=== PATIENT | female | born 1940 | race Caucasian/White ===

== ENCOUNTER 2016-05-18 09:13 | Observation (INO) | payer MEDICARE, OTHER ==
[2016-05-18] VITALS (9 sets, daily range): BP systolic 116–143; BP diastolic 53–90; PULSE 83–98; RESP 16–22; TEMP 98–98.1; O2SAT 88–100
[~2016-05-18] VITALS: Ht 154.9 cm; Wt 75.9 kg
[2016-05-18] MEDS ORDERED: RESP: ALBUTEROL 2.5 MG/IPRATROPIUM 0.5 MG NEB (SCH) NEB ONE (09:45)
[2016-05-18] MEDS ORDERED: SODIUM CHLORIDE 0.9% FLUSH 5 ML FLUSH IVF PRN ×2 (09:45→11:45)
--- NOTE | 2016-05-18 09:48 | PD ---
HPI Chief Complaint: Respiratory Distress Time Seen by Provider: 09:36 Travel History International Travel<30 days: No Contact w/Intl Traveler<30days: No Traveled to known affect area: No History of Present Illness HPI Patient 76-year-old female presents the emergency department for second evaluation of shortness of breath and cough. Patient states she was evaluated in urgent care center approximately week ago was diagnosed with bronchitis after chest x-ray was negative and placed on ciprofloxacin. She is finished her ciprofloxacin and continues to have dry cough and states she can't get her phlegm up. Patient states she had not had a flu shot this year. Did not test her for the flu at that time. She denies any fevers but does endorse chills. Denies any chest pain. Denies abdominal pain nausea vomiting diarrhea constipation or rash. States symptoms began gradually worsening. PFSH Past Medical History Narrative Medical Lung nodule Fibromyalgia Respiratory: Yes Past Surgical History Narrative Surgical Patient has a history of partial pneumonectomy secondary to a nodule on her lung , Cholecystectomy hysterectomy Family History Narrative Family History Noncontributory Social History Narrative Social History Ex-smoker 20 years. Tobacco Use: No Allergies-Medications (Allergen,Severity, Reaction): Coded Allergies: Iodine (Verified Allergy, Severe, respiratory failure, 05/18/16) Shellfish (Verified Allergy, Severe, anaphylaxis, 05/18/16) Codeine (Verified Adverse Reaction, Severe, "walk into ingram", 05/18/16) Reported Meds & Prescriptions Reported Meds & Active Scripts Active Reported Aspirin 81 (Aspirin) 81 Mg Tabdr 81 Mg PO DAILY Xanax (Alprazolam) 0.5 Mg Tab 0.5 Mg PO BID PRN Celebrex (Celecoxib) 200 Mg Cap 250 Mg PO DAILY Review of Systems Except as stated in HPI: all other systems reviewed are Neg Physical Exam Narrative GENERAL: Well-developed well-nourished in no apparent distress. Appears quite comfortable and signs of adequate perfusion and oxygenation. SKIN: Warm and dry. HEAD: Atraumatic. Normocephalic. EYES: Pupils equal and round. No scleral icterus. No injection or drainage. ENT: No nasal bleeding or discharge. Mucous membranes pink and moist. NECK: Trachea midline. No JVD. CARDIOVASCULAR: Regular rate and rhythm. No murmur appreciated. RESPIRATORY: No accessory muscle use. Clear to auscultation. Breath sounds equal bilaterally. GASTROINTESTINAL: Abdomen soft, non-tender, nondistended. Hepatic and splenic margins not palpable. MUSCULOSKELETAL: No obvious deformities. No clubbing. No cyanosis. No edema. NEUROLOGICAL: Awake and alert. No obvious cranial nerve deficits. Motor grossly within normal limits. Normal speech. PSYCHIATRIC: Appropriate mood and affect; insight and judgment normal. Data Data Last Documented VS Vital Signs Date Time Temp Pulse Resp B/P Pulse Ox O2 Delivery O2 Flow Rate FiO2 05/18/16 11:01 83 16 130/59 96 Nasal Cannula 2 05/18/16 09:37 98.1 Orders Ckmb (Isoenzyme) Profile (05/18/16 09:38) Complete Blood Count With Diff (05/18/16 09:38) Comprehensive Metabolic Panel (05/18/16 09:38) Magnesium (Mg) (05/18/16 09:38) Prothrombin Time / Inr (Pt) (05/18/16 09:38) Act Partial Throm Time (Ptt) (05/18/16 09:38) Troponin I (05/18/16 09:38) Ecg Monitoring (05/18/16 09:38) Bilateral Bp Monitoring (05/18/16 09:38) Iv Access Insert/Monitor (05/18/16 09:38) Oximetry (05/18/16 09:38) Oxygen Administration (05/18/16 09:38) Sodium Chloride 0.9% Flush (Ns Flush) (05/18/16 09:45) Chest, Pa & Lat (05/18/16 09:38) Albuterol-Ipratropium Neb (Duoneb Neb) (05/18/16 09:45) Blood Gas Venous (Vbg) (05/18/16 09:40) Influenzae A/B Antigen (05/18/16 09:50) Resp Home Oxygen Walk Test (05/18/16 ) Ventilation & Perfusion Scan (05/18/16 ) Ceftriaxone Inj (Rocephin Inj) (05/18/16 11:00) Azithromycin Inj (Zithromax Inj) (05/18/16 11:00) Admit Order (Ed Use Only) (05/18/16 ) Labs Laboratory Tests Test 05/18/16 05/18/16 09:55 09:57 White Blood Count 11.2 TH/MM3 Red Blood Count 4.31 MIL/MM3 Hemoglobin 14.1 GM/DL Hematocrit 41.9 % Mean Corpuscular Volume 97.3 FL Mean Corpuscular Hemoglobin 32.7 PG Mean Corpuscular Hemoglobin 33.6 % Concent Red Cell Distribution Width 11.7 % Platelet Count 321 TH/MM3 Mean Platelet Volume 8.0 FL Neutrophils (%) (Auto) 45.0 % Lymphocytes (%) (Auto) 45.2 % Monocytes (%) (Auto) 8.1 % Eosinophils (%) (Auto) 0.6 % Basophils (%) (Auto) 1.1 % Neutrophils # (Auto) 5.0 TH/MM3 Lymphocytes # (Auto) 5.1 TH/MM3 Monocytes # (Auto) 0.9 TH/MM3 Eosinophils # (Auto) 0.1 TH/MM3 Basophils # (Auto) 0.1 TH/MM3 CBC Comment DIFF FINAL Differential Comment Prothrombin Time 11.2 SEC Prothromb Time International 1.0 RATIO Ratio Activated Partial 25.3 SEC Thromboplast Time Sodium Level 139 MEQ/L Potassium Level 3.9 MEQ/L Chloride Level 101 MEQ/L Carbon Dioxide Level 31.2 MEQ/L Anion Gap 7 MEQ/L Blood Urea Nitrogen 18 MG/DL Creatinine 0.63 MG/DL Estimat Glomerular Filtration 92 ML/MIN Rate Random Glucose 88 MG/DL Calcium Level 8.7 MG/DL Magnesium Level 1.9 MG/DL Total Bilirubin 0.6 MG/DL Aspartate Amino Transf 28 U/L (AST/SGOT) Alanine Aminotransferase 48 U/L (ALT/SGPT) Alkaline Phosphatase 84 U/L Total Creatine Kinase 85 U/L Troponin I LESS THAN 0.02 NG/ML Total Protein 7.0 GM/DL Albumin 3.5 GM/DL Blood Gas Puncture Site IV Blood Gas Patient Temperature 98.6 Venous Blood pH 7.40 Venous Blood Partial Pressure 46 mmHg CO2 Venous Blood Partial Pressure 42 mmHg O2 Venous Blood HCO3 28 mmol/L Venous Blood Oxygen Saturation 71 % Venous Blood Oxygen Content 14.2 Vol % Venous Blood Base Excess 3.9 mmol/L Oxygen Delivery Device NASAL CANNULA Blood Gas Liter Flow 2 L/M [facility] Medical Decision Making Medical Screen Exam Complete: Yes Emergency Medical Condition: Yes Interpretation(s) EKG shows normal sinus rhythm with normal axis and normal R-wave progression. Intervals within normal limits. Q waves in 3 and less notably in aVF could signify a prior inferior infarct. Otherwise this is a normal EKG. Differential Diagnosis Pneumonia, bronchitis, hypoxia, hypercapnia, influenza, Narrative Course Patient was roomed in the emergency department, chest x-ray shows a very slight atelectasis versus infiltrate in the left lower lobe. She was noted to be having a sat of 90 on room air when my first encounter. While talking she desaturated 89. After a DuoNeb treatment she ambulates around the emergency department and desaturated to 87. She seems to be tolerating the hypoxia fairly well and this may be her baseline hypoxia given a history of smoking. However this is not documented in the past. And recommended that she be admitted to the hospital further evaluation. PE remains on the differential diagnosis and porcine the patient has severe iodine allergy and is unable to pursue CTA. Therefore a VQ scan has been ordered. Patient was discussed with Dr. Benson for admission. Patient has been given Rocephin and azithromycin by IV. She has completed a course of Cipro already for this illness. She does not meet SIRS criteria and therefore does not meet criteria for aggressive fluid hydration. She was placed on 2 L nasal cannula and sats 95% on this. Last 24 hours Impressions Chest X-Ray 05/18/16 0938 Signed Impressions: Service Date/Time: May 10:17 - CONCLUSION: Basilar hypoaeration. Focal scar versus atelectasis left base. No other significant abnormality. Jose Jones MD Lung Scan-VQ Nuclear Medicine 05/18/16 0000 Signed Impressions: Service Date/Time: May 13:05 - CONCLUSION: 1. Low probability for pulmonary embolus. Alfredo Fernandez MD Diagnosis Primary Impression: Acute respiratory failure with hypoxia Additional Impression: Pneumonia Qualified Code: J18.1 - Pneumonia of left lower lobe due to infectious organism Admitting Information Admitting Physician Requests: Observation Condition: Stable Colten Tavares MD May 18, 2016 09:48
[2016-05-18 10:07] LABS: BLOOD GAS VENOUS BASE EXCESS 3.9 mmol/L (-2-2); BLOOD GAS VENOUS HCO3 28 mmol/L (22-26); BLOOD GAS VENOUS O2 CONTENT 14.2 Vol % (9.0-17.0); BLOOD GAS VENOUS O2 HGB SAT 71 % (70-76); BLOOD GAS VENOUS PCO2 46 mmHg (44-48); BLOOD GAS VENOUS PO2 42 mmHg (35-40); CRITICAL VALUE NO; DRAW SITE IV; LITER FLOW 2 L/M; OXYGEN DEVICE NASAL CANNULA; STAT YES; TEMP CORR TO 98.6
[2016-05-18 10:11] LABS: BASOPHIL # 0.1 TH/MM3 (0-0.2); BASOPHIL % 1.1 % (0.0-2.0); EOSINOPHIL # 0.1 TH/MM3 (0-0.4); EOSINOPHIL % 0.6 % (0.0-4.0); HEMATOCRIT 41.9 % (35.0-46.0); LYMPH % 45.2 % (9.0-44.0); LYMPHOCYTE # 5.1 TH/MM3 (1.0-4.8); MEAN CELL VOLUME 97.3 FL (80.0-100.0); MEAN CORPUSCULAR HEMOGLOBIN 32.7 PG (27.0-34.0); MEAN CORPUSCULAR HGB CONC 33.6 % (32.0-36.0); MONO % 8.1 % (0.0-8.0); PLATELET COUNT 321 TH/MM3 (150-450); RED BLOOD COUNT 4.31 MIL/MM3 (4.00-5.30); RED CELL DISTRIBUTION WIDTH 11.7 % (11.6-17.2); WHITE BLOOD COUNT 11.2 TH/MM3 (4.0-11.0)
[2016-05-18 10:12] LABS: HEMO FLAGS DIFF FINAL
[2016-05-18 10:19] LABS: CHLORIDE 101 MEQ/L (98-107); POTASSIUM 3.9 MEQ/L (3.5-5.1); SODIUM (NA) 139 MEQ/L (136-145)
[2016-05-18 10:23] LABS: ANION GAP 7 MEQ/L (5-15); APTT (PATIENT) 25.3 SEC (24.3-30.1); BICARBONATE 31.2 MEQ/L (21.0-32.0); BLOOD UREA NITROGEN 18 MG/DL (7-18); MAGNESIUM 1.9 MG/DL (1.5-2.5); PROTHROMBIN TIME - PATIENT 11.2 SEC (9.8-11.6)
[2016-05-18 10:26] LABS: ALT (GPT) 48 U/L (10-53); AST (GOT) 28 U/L (15-37); GLOMERULAR FILTRATION RATE 92 ML/MIN (>89)
[2016-05-18] MEDS ORDERED: ASPI-110 PO (10:26)
[2016-05-18] MEDS ORDERED: CELE200C PO (10:26)
[2016-05-18] MEDS ORDERED: ALPR.5 PO (10:26)
[2016-05-18 10:27] LABS: TOTAL BILIRUBIN ADULT 0.6 MG/DL (0.2-1.0)
[2016-05-18 10:29] LABS: ALKALINE PHOSPHATASE 84 U/L (45-117)
[2016-05-18 10:43] LABS: CREATINE KINASE 85 U/L (26-192)
--- NOTE | 2016-05-18 10:56 | RADHPO ---
EXAM DATE/TIME: 05/18/2016 10:17 [facility] COMPARISON: No previous studies available for comparison. INDICATIONS : Coughing, chest pain MEDICAL HISTORY : Emphysema. Chronic obstructive pulmonary disease. SURGICAL HISTORY : None. ENCOUNTER: Initial ACUITY: 3 days PAIN SCORE: 4/10 LOCATION: Bilateral chest FINDINGS: The lungs are hypoaerated. Linear density is identified in the left base. Lungs are otherwise free of consolidating airspace disease or congestion. Heart is normal in size. There are no hilar or mediastinal abnormalities. Osseous structures are grossly intact. CONCLUSION: Basilar hypoaeration. Focal scar versus atelectasis left base. No other significant abnormality. Jose Jones MD on May 18, 2016 at 10:53 Board Certified Radiologist. This report was verified electronically.
[2016-05-18] MEDS ORDERED: AZITHROMYCIN INJ 500 MG in SODIUM CHLOR 0.9% 250 ML INJ 250 ML IV ONE (11:00)
[2016-05-18] MEDS ORDERED: cefTRIAXone INJ 1,000 MG in SODIUM CHLORIDE 0.9% INJ 100 ML IV ONE (11:00)
[2016-05-18] MEDS ORDERED: ALPRAZolam 0.5 MG TAB PO PRN (11:45)
[2016-05-18] MEDS ORDERED: RESP: ALBUTEROL 2.5 MG/3 ML NEB (PRN) INH (11:45)
[2016-05-18] MEDS: AZITHROMYCIN 250 MG TAB PO SCH (12:06)
[2016-05-18] MEDS: methylPREDNISolone SOD SUCC 125 MG/2 ML VIAL IVP SCH ×2 (12:08→18:42)
--- NOTE | 2016-05-18 14:05 | RADHPO ---
EXAM DATE/TIME: 05/18/2016 13:05 [facility] COMPARISON: CHEST PA & LAT, May 18, 2016, 10:17. INDICATIONS : Shortness of breath for 1 week. DOSE: 8.1 mCi Tc99m MAA IV 0.6 mCi Tc99m DTPA aerosol MEDICAL HISTORY : Hypertension. Smoking history. SURGICAL HISTORY : Hysterectomy. Cholecystectomy. Right partial lobectomy. ENCOUNTER: Initial ACUITY: 1 week PAIN SCALE: 2/10 LOCATION: Bilateral chest TECHNIQUE: Following five minutes of tidal breathing of DTPA aerosol, planar images of the lungs were performed in eight projections. The patient was then injected with MAA, and eight-view perfusion scan was perf ormed. FINDINGS: There is a heterogeneous pattern of aerosol delivery with some air trapping. The perfusion lung scan demonstrates a slightly heterogeneous pattern of uptake in both lungs with el evated right hemidiaphragm. No segmental or subsegmental defects are seen. CONCLUSION: 1. Low probability for pulmonary embolus. Alfredo Fernandez MD on May 18, 2016 at 14:01 Board Certified Radiologist. This report was verified electronically.
[2016-05-18] MEDS: RESP: ALBUTEROL 2.5 MG/IPRATROPIUM 0.5 MG NEB (SCH) INH ×2 (14:16→19:48)
--- NOTE | 2016-05-18 14:32 | HHI.HP ---
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 Patient reports associated headache, runny nose, low -grade fever/chills, muscle aches and nausea/vomiting at the onset of her symptoms 1 week ago but these have all resolved. She was seen at an urgent care on 05/11 and was given a prescription for oral steroids and Cipro. Patient reports that she mildly improved with this treatment however she has continued to have persistent shortness of breath and cough as well as significant fatigue. Chest x-ray obtained in the ED shows basilar hypoaeration, focal scar versus atelectasis left base and no other significant abnormality noted. VQ scan was low probability for PE. White count was mildly elevated at 11.2. Review of Systems Constitutional: COMPLAINS OF: Fatigue (progressive, x1 week), Fever (fever and chills at onset of symptoms, now resolved), Change in appetite (decreased, 1 week) Endocrine: DENIES: Polydipsia, Polyuria Eyes: DENIES: Blurred vision, Photosensitivity, Double Vision Ears, nose, mouth, throat: COMPLAINS OF: Throat pain (at onset of symptoms, resolved), Running Nose (at onset of symptoms, resolved), DENIES: Vertigo, Odynophagia Respiratory: COMPLAINS OF: Cough (1 week ), Sputum production (whitish), Shortness of breath (as stated in HPI), DENIES: Wheezing, Hemoptysis Cardiovascular: DENIES: Chest pain, Palpitations, Lower Extremity Edema Gastrointestinal: DENIES: Abdominal pain, Black stools, Bloody stools, Diarrhea , Nausea, Vomiting Genitourinary: DENIES: Hematuria, Dysuria Musculoskeletal: COMPLAINS OF: Muscle aches (at onset of symptoms 1 week ago, resolved), DENIES: Back pain, Neck pain Integumentary: DENIES: Pruritus, Rash Hematologic/lymphatic: DENIES: Lymphadenopathy Immunologic/allergic: DENIES: Urticaria Neurologic: COMPLAINS OF: Headache (severe, 3 days at onset of symptoms, now resolved), DENIES: Localized weakness, Paresthesias Psychiatric: COMPLAINS OF: Anxiety (chronic, unchanged), DENIES: Confusion, Depression Past Family Social History Past Medical History Fibromyalgia Anxiety GERD History of squamous cell cancer right upper lobe, status post resection Coronary artery disease with a history of "light heart attack" in 1998 COPD DJD left knee Past Surgical History Status post right upper lobectomy Hysterectomy Appendectomy Cholecystectomy Right total knee replacement Reported Medications Aspirin 81 (Aspirin) 81 Mg Tabdr 81 Mg PO DAILY Xanax (Alprazolam) 0.5 Mg Tab 0.5 Mg PO BID PRN Celebrex (Celecoxib) 200 Mg Cap 250 Mg PO DAILY Allergies: Coded Allergies: Iodine (Verified Allergy, Severe, respiratory failure, 05/18/16) Shellfish (Verified Allergy, Severe, anaphylaxis, 05/18/16) Codeine (Verified Adverse Reaction, Severe, "walk into ingram", 05/18/16) Active Ordered Medications Current Medications Medications (Trade) Dose Ordered Sig/Michael Route Start Time Stop Time Status Last Admin (NS Flush) 2 ml BID IVF 05/18/16 21:00 (NS Flush) 2 ml UNSCH PRN IVF 05/18/16 11:45 Methylprednisolone Sodium Succinate 60 mg 60 mg Q6H IVP 05/18/16 12:00 05/18/16 12:08 (Rocephin Inj/NS Inj) 100 ml @ 200 mls/hr Q24H IV 05/19/16 08:00 (Zithromax) 500 mg Q24H PO 05/18/16 12:00 05/21/16 11:59 (Xanax) 0.5 mg BID PRN PO 05/18/16 11:45 (Ecotrin Ec) 81 mg DAILY PO 05/19/16 09:00 (CeleBREX) 200 mg DAILY PO 05/19/16 09:00 Family History Coronary artery disease Mother, multiple myeloma, age 77 Father, lung cancer, age 87 Social History Patient has a history of tobacco use 1 pack per day 30 years but quit in 2003 She denies any alcohol use or illicit drug use Patient is but has a significant other 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 Appears comfortable. A&Ox3. SKIN: No rashes, ecchymoses or lesions. Cool and dry. HEAD: Atraumatic. Normocephalic. No temporal or scalp tenderness. EYES: Pupils equal round and reactive. Extraocular motions intact. No scleral icterus. No injection or drainage. ENT: Nose without bleeding, purulent drainage or septal hematoma. Throat without erythema, tonsillar hypertrophy or exudate. Uvula midline. Airway patent. NECK: Trachea midline. No lymphadenopathy. Supple, nontender, no meningeal signs. CARDIOVASCULAR: Regular rate and rhythm without murmurs, gallops, or rubs. RESPIRATORY: Breath sounds diminished bilaterally. Coarse breath sounds. Inspiratory wheezing noted. GASTROINTESTINAL: Abdomen soft, non-tender, nondistended. No hepato-splenomegaly , or palpable masses. No guarding. MUSCULOSKELETAL: Extremities without clubbing, cyanosis, or edema. No joint tenderness, effusion, or edema noted. No calf tenderness. Negative Homans sign bilaterally. NEUROLOGICAL: Awake and alert. Cranial nerves II through XII intact. Motor and sensory grossly within normal limits. Five out of 5 muscle strength in all muscle groups. Normal speech. Laboratory Laboratory Tests Test 05/18/16 05/18/16 09:55 09:57 White Blood Count 11.2 Red Blood Count 4.31 Hemoglobin 14.1 Hematocrit 41.9 Mean Corpuscular Volume 97.3 Mean Corpuscular Hemoglobin 32.7 Mean Corpuscular Hemoglobin 33.6 Concent Red Cell Distribution Width 11.7 Platelet Count 321 Mean Platelet Volume 8.0 Neutrophils (%) (Auto) 45.0 Lymphocytes (%) (Auto) 45.2 Monocytes (%) (Auto) 8.1 Eosinophils (%) (Auto) 0.6 Basophils (%) (Auto) 1.1 Neutrophils # (Auto) 5.0 Lymphocytes # (Auto) 5.1 Monocytes # (Auto) 0.9 Eosinophils # (Auto) 0.1 Basophils # (Auto) 0.1 CBC Comment DIFF FINAL Differential Comment Prothrombin Time 11.2 Prothromb Time International 1.0 Ratio Activated Partial 25.3 Thromboplast Time Sodium Level 139 Potassium Level 3.9 Chloride Level 101 Carbon Dioxide Level 31.2 Anion Gap 7 Blood Urea Nitrogen 18 Creatinine 0.63 Estimat Glomerular Filtration 92 Rate Random Glucose 88 Calcium Level 8.7 Magnesium Level 1.9 Total Bilirubin 0.6 Aspartate Amino Transf 28 (AST/SGOT) Alanine Aminotransferase 48 (ALT/SGPT) Alkaline Phosphatase 84 Total Creatine Kinase 85 Troponin I LESS THAN 0.02 Total Protein 7.0 Albumin 3.5 Blood Gas Puncture Site IV Blood Gas Patient Temperature 98.6 Venous Blood pH 7.40 Venous Blood Partial Pressure 46 CO2 Venous Blood Partial Pressure 42 O2 Venous Blood HCO3 28 Venous Blood Oxygen Saturation 71 Venous Blood Oxygen Content 14.2 Venous Blood Base Excess 3.9 Oxygen Delivery Device NASAL CANNULA Blood Gas Liter Flow 2 Date/Time Procedure Status Source Growth 05/18/16 10:10 Influenza Types A,B Antigen (ZORAN) - Final Complete Nasal Washing NEGATIVE FOR FLU A AND B ANTIGEN.... Result Diagram: 05/18/16 0955 05/18/16 0955 Imaging Last 48 hours Impressions Chest X-Ray 05/18/16 0938 Signed Impressions: Service Date/Time: May 10:17 - CONCLUSION: Basilar hypoaeration. Focal scar versus atelectasis left base. No other significant abnormality. Jose Jones MD Lung Scan- Nuclear Medicine 05/18/16 0000 Signed Impressions: Service Date/Time: May 13:05 - CONCLUSION: 1. Low probability for pulmonary embolus. 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 Acute Bronchitis / COPD exacerbation with h/o recent URI - mild hypoxia in the ED (patient with history of COPD) - Admit to observation - Ceftriaxone IV - Azithromycin - DuoNebs - IV steroids - PT eval/tx -Check walk test in the morning COPD with mild exacerbation - as above - Will perform walk test prior to discharge home - Duonebs when necessary - Supplemental oxygen - patient will need prescription for albuterol rescue inhaler at time of discharge Anxiety - Resume home Xanax as needed Fibromyalgia - Resume home Celebrex dose DVT prophylaxis - SCDs/LUAN hose Written by Zoraida Mcnally PA-C acting as scribe for Dr. Benson on 05/18/16 at 16:26. All or portions of this note were transcribed by jerome Conway. I, Dr. Lashanda Benson personally performed the history, physical exam, and medical decision making; and confirmed the accuracy of the information in the transcribed note. Authenticated by Dr. Lashanda Benson on 05/18/16 at 18:40. Zoraida Mcnally May 18, 2016 14:32 Lashanda Benson MD May 18, 2016 18:41
[2016-05-18] MEDS: SODIUM CHLORIDE 0.9% FLUSH 5 ML FLUSH IVF SCH (21:05)
[2016-05-19] VITALS (8 sets, daily range): BP systolic 116–142; BP diastolic 61–68; PULSE 86–105; RESP 20; TEMP 96.7–98; O2SAT 87–96
[2016-05-19] MEDS: methylPREDNISolone SOD SUCC 125 MG/2 ML VIAL IVP SCH ×3 (06:13→12:14)
[2016-05-19] MEDS: RESP: ALBUTEROL 2.5 MG/IPRATROPIUM 0.5 MG NEB (SCH) INH ×3 (07:31→15:37)
[2016-05-19] MEDS: SODIUM CHLORIDE 0.9% FLUSH 5 ML FLUSH IVF SCH (07:56)
[2016-05-19] MEDS ORDERED: cefTRIAXone INJ 1,000 MG in SODIUM CHLORIDE 0.9% INJ 100 ML IV SCH (08:00)
[2016-05-19] MEDS ORDERED: CELECOXIB 200 MG CAP PO SCH (09:00)
[2016-05-19] MEDS ORDERED: ASPIRIN EC 81 MG TABEC PO SCH (09:00)
[2016-05-19] MEDS: AZITHROMYCIN 250 MG TAB PO SCH (12:13)
[2016-05-19] MEDS ORDERED: OXYGENTANK NAS.CANULA (13:37)
[2016-05-19] MEDS ORDERED: AUGM500T7 PO (13:37)
[2016-05-19] MEDS ORDERED: PRED20 PO (13:37)
--- NOTE | 2016-05-19 13:39 | HHI.DCPOC ---
Discharge Care Plan Diagnosis: (1) COPD (chronic obstructive pulmonary disease) Goals to Promote Your Health * To prevent worsening of your condition and complications * To maintain your health at the optimal level Directions to Meet Your Goals Take your medications as prescribed Follow your dietary instruction Follow activity as directed Keep your appointments as scheduled Take your immunizations and boosters as scheduled If your symptoms worsen call your PCP, if no PCP go to Urgent Care Center or Emergency Room Smoking is Dangerous to Your Health. Avoid second hand smoke Call the 24-hour hour crisis hotline for domestic abuse at Tanya Momin MD May 19, 2016 13:39
--- NOTE | 2016-05-19 13:42 | HHI.DS ---
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 Patient reports associated headache, runny nose, low -grade fever/chills, muscle aches and nausea/vomiting at the onset of her symptoms 1 week ago but these have all resolved. She was seen at an urgent care on 05/11 and was given a prescription for oral steroids and Cipro. Patient reports that she mildly improved with this treatment however she has continued to have persistent shortness of breath and cough as well as significant fatigue. Chest x-ray obtained in the ED shows basilar hypoaeration, focal scar versus atelectasis left base and no other significant abnormality noted. VQ scan was low probability for PE. White count was mildly elevated at 11.2. CBC/BMP: 05/18/16 0955 05/18/16 0955 Significant Findings Laboratory Tests Test 05/18/16 05/18/16 09:55 09:57 White Blood Count 11.2 TH/MM3 (4.0-11.0) Lymphocytes (%) (Auto) 45.2 % (9.0-44.0) Monocytes (%) (Auto) 8.1 % (0.0-8.0) Lymphocytes # (Auto) 5.1 TH/MM3 (1.0-4.8) Troponin I LESS THAN 0.02 NG/ML (0.02-0.05) Venous Blood Partial Pressure 42 mmHg (35-40) O2 Venous Blood HCO3 28 mmol/L (22-26) Venous Blood Base Excess 3.9 mmol/L (-2-2) Imaging Last Impressions Chest X-Ray 05/18/16 0938 Signed Impressions: Service Date/Time: May 10:17 - CONCLUSION: Basilar hypoaeration. Focal scar versus atelectasis left base. No other significant abnormality. Jose Jones MD Lung Scan-VQ Nuclear Medicine 05/18/16 0000 Signed Impressions: Service Date/Time: May 13:05 - CONCLUSION: 1. Low probability for pulmonary embolus. Alfredo Fernandez MD PE at Discharge GENERAL: This is a well-nourished, well-developed patient, in no apparent distress. CARDIOVASCULAR: Regular rate and rhythm without murmurs, gallops, or rubs. RESPIRATORY: Clear to auscultation. Breath sounds equal bilaterally. No wheezes , rales, or rhonchi. GASTROINTESTINAL: Abdomen soft, non-tender, nondistended. Normal active bowel sounds MUSCULOSKELETAL: Extremities without clubbing, cyanosis, or edema. NEURO: Alert & Oriented x4 to person, place, time, situation. Moves all ext x4 Pt update on day of discharge Is seen today in follow-up for hypoxemia which is improved. Patient did not pass her walk test will need oxygen for discharge today. This was discussed with patient and her sister at home. Tolerating antibiotics well. No new complaints. Discharge plans discussed with the patient and she is agreeable Hospital Course Patient is a 76-year-old female with known history of COPD. She did come in with evidence of respiratory failure and hypoxemia. She didn't require oxygen and as well as antibiotics for her pneumonia which were given IV. Patient did well with steroids and bronchodilators as discharged home on oxygen. Pt Condition on Discharge: Good Discharge Disposition: Discharge Home Discharge Time: > 30 minutes Discharge Instructions DIET: Follow Instructions for: As Tolerated, No Restrictions Activities you can perform: Regular-No Restrictions New Medications: Amoxicillin-Clavulanate (Augmentin) 500-125 mg Tab 500 MG PO Q8H Infection #10 Ref 0 TAB Oxygen tank (Oxygen tank) 1 Ea Tank 2 LITER VERONA.CANULA CONTINUOUS Oxygen Concentrator Portable Gaseous 2 L/min via Nasal Cannula Continuous For 99 months [id number] HYPOXEMIA PREVENTION #1 CYLINDER Prednisone (Prednisone) 20 Mg Tab 20 MG PO DIRECTED 40 MG twice a day x 3 days, then 20 MG daily x 3 days, then 10 MG daily x 3 days Inflammation #11 Ref 0 TAB Tanya Momin MD May 19, 2016 13:42
--- NOTE | 2016-05-19 20:22 | EKG ---
Date Performed: 05/18/2016 Time Performed: 09:28:36 PTAGE: 76 years EKG: Sinus rhythm Inferior infarct - age undetermined Abnormal ECG NO PREVIOUS TRACING DOCTOR: Schuyler Rodriguez Interpretating Date/Time 05/19/2016 20:22:05
== END 2016-05-19 18:30 | disposition home or self-care (01) ==
LOC: PHED 09:13 → PHEDA 11:43 → PHEDH 16:41 → PH3B 18:20
PROVIDERS: ADMIT Hospitalist; ATTEND Hospitalist
DX: J44.0 Chronic obstructive pulmonary disease with (acute) lower respiratory infection (principal); J44.1 Chronic obstructive pulmonary disease with (acute) exacerbation; J18.9 Pneumonia, unspecified organism; J96.01 Acute respiratory failure with hypoxia; K21.9 Gastro-esophageal reflux disease without esophagitis; F41.9 Anxiety disorder, unspecified; I25.10 Atherosclerotic heart disease of native coronary artery without angina pectoris; M79.7 Fibromyalgia; M17.12 Unilateral primary osteoarthritis, left knee; Z96.651 Presence of right artificial knee joint; Z90.710 Acquired absence of both cervix and uterus; Z79.82 Long term (current) use of aspirin; Z90.2 Acquired absence of lung [part of]; Z91.041 Radiographic dye allergy status; Z88.5 Allergy status to narcotic agent; Z91.013 Allergy to seafood; Z87.891 Personal history of nicotine dependence; Z85.118 Personal history of other malignant neoplasm of bronchus and lung
CPT/HCPCS: 71020; 78582; 80053; 82550; 82805; 83735; 84484; 85025; 85610; 85730; 87804; 93005; 94620; 94640; 94664; 96365; 99285; A9540; A9567; G0378; J0456; J0696; J2930; J7050